=== PATIENT | female | born 1985 | race American Indian/Alaskan Native ===

== ENCOUNTER 2018-05-21 11:41 | Emergency (ER) | payer MEDICAID, OTHER ==
[2018-05-21 11:54] VITALS: BP 120/76
--- NOTE | 2018-05-21 13:26 | Emergency Department Report ---
ED Dysuria HPI - HPI Chief Complaint: Urogenital-Female Stated Complaint: POSS PREG/BLOOD IN URINE Time Seen by Provider: 05/21/18 13:23 Duration: 3 Days Location of Discomfort: Suprapubic Severity: Mild Symptoms: Dysuria: No, Frequency: No, Suprapubic Pain: No, Flank Pain: No, Fever: No, Hematuria: No, Abdominal Pain: No, Previous UTI's: No Other History: This 32-year-old female here for an STD check. She states that her boyfriend has been out of town for several months. Upon his return she had to take him to the ER because he was having penile discharge and bloody discharge. She is complaining of vaginal discharge and itching. ED Review of Systems ROS: Stated complaint: POSS PREG/BLOOD IN URINE Other details as noted in HPI Comment: All other systems reviewed and negative Constitutional: denies: chills Eyes: denies: eye pain ENT: denies: throat pain Respiratory: denies: cough Cardiovascular: denies: dyspnea on exertion Endocrine: denies: intolerance to cold Gastrointestinal: denies: nausea Genitourinary: as per HPI, discharge. denies: urgency Musculoskeletal: denies: back pain Skin: denies: lesions Neurological: denies: headache Psychiatric: denies: anxiety Hematological/Lymphatic: denies: as per HPI ED Past Medical Hx - Past Medical History Previous Medical History?: No - Surgical History Past Surgical History?: Yes Additional Surgical History: LEAP procedure - Social History Smoking Status: Current Every Day Smoker Substance Use Type: None - Medications Home Medications: Home Medications Medication Instructions Recorded Confirmed Last Taken Type Acetaminophen/Codeine 1 tab PO Q6H PRN #14 tab 07/20/14 Unknown Rx [Acetaminophen-Codeine #3 TAB] Azithromycin [Zithromax Z-BOBY] 250 mg PO DAILY #6 tablet 07/20/14 Unknown Rx Cetirizine HCl [Allergy Relief] 10 mg PO DAILY #10 tablet 07/20/14 Unknown Rx Fluticasone [Flonase] 1 spray NS QDAY #1 bottle 07/20/14 Unknown Rx Ibuprofen [Motrin] 600 mg PO Q8H PRN #30 tablet 07/20/14 Unknown Rx Dysuria Exam - Exam General: Vital signs noted. No distress. Alert and acting appropriately. Exam: Yes Moist Mucous Membranes, No CVA Tenderness, No Abdominal Tenderness, No Rigidity or Guarding ED Course Vital Signs 05/21/18 11:50 Temperature 98.1 F Pulse Rate 93 H Respiratory 22 Rate Blood Pressure 120/76 O2 Sat by Pulse 100 Oximetry ED Medical Decision Making - Medical Decision Making PREG NEG URINE WITH NIT/LEUK/BLOOD IN SETTING OF RECENT EXPOSURE WILL TREAT EMPIRACALLY Lab Results 05/21/18 Range/Units 13:04 Urine Color Yellow (Yellow) Urine Turbidity Clear (Clear) Urine pH 5.0 (5.0-7.0) Ur Specific [place] 1.021 (1.003-1.030) Urine Protein <15 mg/dl (Negative) mg/dL Urine Glucose (UA) Neg (Negative) mg/dL Urine Ketones Neg (Negative) mg/dL Urine Blood Mod (Negative) Urine Nitrite Pos (Negative) Ur Reducing Substances Not Reportable Urine Bilirubin Neg (Negative) Urine Ictotest Not Reportable Urine Urobilinogen < 2.0 (<2.0) mg/dL Ur Leukocyte Esterase Tr (Negative) Urine WBC (Auto) 24.0 H (0.0-6.0) /HPF Urine RBC (Auto) 3.0 (0.0-6.0) /HPF U Epithel Cells (Auto) 4.0 (0-13.0) /HPF Urine Bacteria (Auto) 4+ (Negative) /HPF Urine Mucus 1+ /HPF Urine HCG, Qual Negative (Negative) - Differential Diagnosis RO STI V UTI V PREG Critical care attestation.: If time is entered above; I have spent that time in minutes in the direct care of this critically ill patient, excluding procedure time. ED Disposition Clinical Impression: Vaginitis, STD exposure Disposition: - TO HOME OR SELFCARE Is pt being admited?: No Does the pt Need Aspirin: No Condition: Stable Instructions: Sexually Transmitted Diseases (ED) Additional Instructions: SAFE SEX FOLLOW UP WITH OBGYN Referrals: JOELLEN BANUELOS MD [Primary Care Provider] - 3-5 Days AMAN SHULTZ MD [Staff Physician] - 3-5 Days Time of Disposition: 14:00
[2018-05-21 13:33] LABS: HCG Qualitative,Urine Negative (Negative)
[2018-05-21 13:36] LABS: Bacteria,Urine 4+ /HPF (Negative); Bilirubin,Urine NEG (Negative); Blood,Urine MOD (Negative); Color,Urine Yellow (Yellow); Mucus,Urine 1+ /HPF; Protein,Urine <15 mg/dL mg/dL (Negative); Urobilinogen,Urine < 2.0 mg/dL (<2.0)
[2018-05-21] MEDS ORDERED: ZITHROMAX PO ONE (13:59)
[2018-05-21] MEDS ORDERED: FLAGYL PO ONE (13:59)
[2018-05-21] MEDS ORDERED: ROCEPHIN IM ONE (13:59)
[2018-05-21] MEDS ORDERED: XYLOCAINE 1% MPF 5 mL INFILTRATI ONE (13:59)
[2018-05-21] MEDS ORDERED: ZOFRAN ODT PO ONE (14:00)
== END 2018-05-21 14:57 | disposition home or self-care (01) ==
LOC: ED 11:41
DX: N76.0 Acute vaginitis (principal); Z20.2 Contact with and (suspected) exposure to infections with a predominantly sexual mode of transmission; F17.200 Nicotine dependence, unspecified, uncomplicated
CPT/HCPCS: 81001; 81025; 96372; 99283; J0696; Q0162